=== PATIENT | male | born 1960 | race Caucasian/White ===

== ENCOUNTER 2017-10-18 12:25 | Inpatient (IN) | payer BC ==
[2017-10-18] MEDS ORDERED: CEFAZOLIN 1 GM INJ (13:11)
[2017-10-18] MEDS ORDERED: PROPOFOL 20 ML (13:11)
[2017-10-18] MEDS ORDERED: ROCURONIUM 50 MG INJ ×2 (13:11→16:31)
[2017-10-18] MEDS ORDERED: MIDAZOLAM 1 MG/ML 2 ML INJ (13:11)
[2017-10-18] MEDS ORDERED: GELATIN SIZE 100 SPONGE (13:16)
[2017-10-18] MEDS ORDERED: THROMBIN 5000 UNIT VIAL (13:16)
[2017-10-18] MEDS ORDERED: LABETALOL HCL 20MG INJ (15:29)
[2017-10-18] MEDS ORDERED: ACETAMINOPHEN 1000MG/100ML IV 100 ML (15:41)
[2017-10-18] MEDS ORDERED: METOCLOPRAMIDE 10 MG INJ (15:41)
[2017-10-18] MEDS ORDERED: DEXAMETHASONE 4 MG/ML 1 ML INJ (15:41)
[2017-10-18] MEDS ORDERED: ONDANSETRON 4 MG INJ (15:41)
[2017-10-18] MEDS ORDERED: PHENYLephrine 10 MG INJ (15:43)
[2017-10-18] MEDS ORDERED: PHENYLephrine (100 MCG/ML) 5ML SYG ×2 (15:44→16:26)
[2017-10-18] MEDS: POLYMYXIN/BACITRACIN 1L IRRIG (15:51)
[2017-10-18] MEDS: ROPIVACAINE 0.5 % 30 ML VIAL (15:55)
[2017-10-18] MEDS ORDERED: SUGAMMADEX SODIUM 200 MG/2 ML VIAL IV (16:39)
[2017-10-18] MEDS ORDERED: NALOXONE (0.4 MG/ML) INJ IV (17:00)
[2017-10-18] MEDS ORDERED: NACL 0.9% 3 ML SYG IV (17:00)
[2017-10-18] MEDS ORDERED: hydrALAzine 20 MG INJ IV ×2 (17:30→18:30)
[2017-10-18] MEDS ORDERED: LABETALOL HCL 20MG INJ IV (17:30)
[2017-10-18] MEDS ORDERED: ALBUMIN HUMAN 5% 250 ML IV (17:30)
[2017-10-18] MEDS ORDERED: DIPHENHYDRAMINE 50 MG INJ IV (17:30)
[2017-10-18] MEDS ORDERED: MEPERIDINE 25 MG INJ IV (17:30)
[2017-10-18] MEDS ORDERED: FENTAnyl 50 MCG/ML VIAL IV ×2 (17:30)
[2017-10-18] MEDS ORDERED: EPHEDrine SULFATE 50 MG/5 ML SYG IV (17:30)
[2017-10-18] MEDS ORDERED: OXYCODONE/ACETAMINOPHEN (5/325) TAB PO ×2 (17:30)
[2017-10-18] MEDS ORDERED: METOCLOPRAMIDE 10 MG INJ IV (17:30)
[2017-10-18] MEDS ORDERED: HYDROmorphONE (0.2 MG/ML) 10ML SYG IV ×3 (17:30)
[2017-10-18] MEDS: FENTAnyl 50 MCG/ML VIAL IV (17:40)
[2017-10-18] MEDS: ONDANSETRON 4 MG INJ IV (17:40)
[2017-10-18] MEDS: HYDROCODONE/APAP (5/325) TAB PO (20:18)
[2017-10-18] MEDS: HYDROmorphONE 2 MG/ML SYG IV (21:04)
[2017-10-18] MEDS: CEFAZOLIN 1 GM/50 ML (PMX) 50 ML IVPB (21:08)
[2017-10-18] MEDS: NS + KCL 20 MEQ 1,000 ML IV (21:11)
[2017-10-19] MEDS: CEFAZOLIN 1 GM/50 ML (PMX) 50 ML IVPB ×3 (00:13→12:24)
[2017-10-19] MEDS: HYDROmorphONE 2 MG/ML SYG IV ×4 (00:13→10:55)
[2017-10-19] MEDS: HYDROCODONE/APAP (5/325) TAB PO ×4 (00:18→19:41)
[2017-10-19] MEDS: NS + KCL 20 MEQ 1,000 ML IV ×2 (03:00→09:28)
[2017-10-19] MEDS: ACETAMINOPHEN 325 MG TAB PO (05:18)
[2017-10-19 06:57] LABS: HEMATOCRIT 39.4 % (42.0-52.0); HEMOGLOBIN 14.1 g/dl (14.0-18.0)
[2017-10-19 07:30] LABS: ANION GAP 13 (8-16); BLOOD UREA NITROGEN 15 mg/dl (7-20); CALCIUM 8.9 mg/dl (8.4-10.2); CARBON DIOXIDE 26 mmol/L (21-31); CHLORIDE 104 mmol/L (97-110); CREATININE 0.99 mg/dl (0.61-1.24); GLUCOSE 128 mg/dl (70-220); POTASSIUM 4.5 mmol/L (3.5-5.1); SODIUM 138 mmol/L (135-144)
[2017-10-19] MEDS: KETOROLAC 15 MG INJ IV ×2 (13:17→18:41)
[2017-10-19] MEDS: HYDROmorphONE 0.5 MG/0.5 ML SYG IV ×3 (14:51→22:55)
[2017-10-20] MEDS: HYDROCODONE/APAP (5/325) TAB PO ×3 (01:04→22:13)
[2017-10-20] MEDS: KETOROLAC 15 MG INJ IV ×2 (01:04→06:31)
[2017-10-20] MEDS: HYDROmorphONE 0.5 MG/0.5 ML SYG IV ×5 (02:07→23:14)
[2017-10-20 07:16] LABS: ADD MAN DIFF? NO
[2017-10-20 07:22] LABS: BASOPHILS % 0.3 % (0.0-2.0); EOSINOPHILS % 0.4 % (0.0-7.0); HEMATOCRIT 40.5 % (42.0-52.0); HEMOGLOBIN 14.1 g/dl (14.0-18.0); LYMPHOCYTES # 3.1 10^3/ul (0.8-2.9); LYMPHOCYTES % 29.5 % (15.0-51.0); MEAN CORPUSCULAR HEMOGLOBIN 31.3 pg (29.0-33.0); MEAN CORPUSCULAR HGB CONC 34.8 g/dl (32.0-37.0); MEAN PLATELET VOLUME 10.3 fl (7.4-10.4); MONOCYTES % 9.3 % (0.0-11.0); NEUTROPHIL # 6.3 10^3/ul (1.6-7.5); NEUTROPHILS % 60.3 % (39.0-77.0); PLATELET COUNT 187 10^3/UL (140-415); RED CELL DISTRIBUTION WIDTH 11.7 % (11.5-14.5)
[2017-10-20 07:22] LABS: WHITE BLOOD COUNT 10.4 10^3/ul (4.8-10.8)
[2017-10-20 07:47] LABS: ANION GAP 12 (8-16); BLOOD UREA NITROGEN 17 mg/dl (7-20); CALCIUM 8.9 mg/dl (8.4-10.2); CARBON DIOXIDE 28 mmol/L (21-31); CHLORIDE 105 mmol/L (97-110); CREATININE 0.99 mg/dl (0.61-1.24); GLUCOSE 95 mg/dl (70-220); POTASSIUM 3.9 mmol/L (3.5-5.1); SODIUM 141 mmol/L (135-144)
[2017-10-20] MEDS: ONDANSETRON 4 MG INJ IV (09:06)
[2017-10-20] MEDS: BISACODYL (EC) 5 MG TAB PO (15:51)
[2017-10-20] MEDS: DOCUSATE SODIUM 100 MG CAP PO (20:07)
[2017-10-21] MEDS: HYDROmorphONE 0.5 MG/0.5 ML SYG IV ×2 (05:43→13:01)
[2017-10-21 06:07] LABS: ADD MAN DIFF? NO
[2017-10-21 06:34] LABS: ANION GAP 13 (8-16); BLOOD UREA NITROGEN 14 mg/dl (7-20); CALCIUM 8.7 mg/dl (8.4-10.2); CARBON DIOXIDE 29 mmol/L (21-31); CHLORIDE 103 mmol/L (97-110); CREATININE 0.94 mg/dl (0.61-1.24); GLUCOSE 104 mg/dl (70-220); POTASSIUM 3.6 mmol/L (3.5-5.1); SODIUM 141 mmol/L (135-144)
[2017-10-21 06:39] LABS: BASOPHIL # 0.1 10^3/ul (0.0-0.1); BASOPHILS % 0.5 % (0.0-2.0); EOSINOPHILS # 0.1 10^3/ul (0.0-0.5); EOSINOPHILS % 1.4 % (0.0-7.0); HEMATOCRIT 41.1 % (42.0-52.0); HEMOGLOBIN 14.6 g/dl (14.0-18.0); LYMPHOCYTES # 2.5 10^3/ul (0.8-2.9); LYMPHOCYTES % 25.5 % (15.0-51.0); MEAN CORPUSCULAR HEMOGLOBIN 31.7 pg (29.0-33.0); MEAN CORPUSCULAR HGB CONC 35.5 g/dl (32.0-37.0); MEAN CORPUSCULAR VOLUME 89.3 fl (82.0-101.0); MEAN PLATELET VOLUME 10.5 fl (7.4-10.4); MONOCYTE # 1.2 10^3/ul (0.3-0.9); MONOCYTES % 12.4 % (0.0-11.0); NEUTROPHILS % 59.8 % (39.0-77.0); PLATELET COUNT 194 10^3/UL (140-415)
[2017-10-21] MEDS: DOCUSATE SODIUM 100 MG CAP PO ×2 (09:20→20:32)
[2017-10-21] MEDS: CARISOPRODOL 350 MG TAB PO (09:20)
[2017-10-21] MEDS: HYDROCODONE/APAP (5/325) TAB PO ×3 (09:20→20:32)
[2017-10-22] MEDS: HYDROCODONE/APAP (5/325) TAB PO ×3 (02:17→14:13)
[2017-10-22 06:08] LABS: ADD MAN DIFF? NO
[2017-10-22 06:12] LABS: BASOPHILS % 0.3 % (0.0-2.0); EOSINOPHILS # 0.2 10^3/ul (0.0-0.5); EOSINOPHILS % 1.8 % (0.0-7.0); HEMATOCRIT 40.3 % (42.0-52.0); HEMOGLOBIN 14.7 g/dl (14.0-18.0); LYMPHOCYTES % 33.2 % (15.0-51.0); MEAN CORPUSCULAR HEMOGLOBIN 32.2 pg (29.0-33.0); MEAN CORPUSCULAR HGB CONC 36.5 g/dl (32.0-37.0); MEAN CORPUSCULAR VOLUME 88.2 fl (82.0-101.0); MEAN PLATELET VOLUME 10.4 fl (7.4-10.4); MONOCYTE # 1.2 10^3/ul (0.3-0.9); NEUTROPHIL # 4.6 10^3/ul (1.6-7.5); NEUTROPHILS % 51.3 % (39.0-77.0); PLATELET COUNT 202 10^3/UL (140-415); RED BLOOD COUNT 4.57 10^6/ul (4.70-6.10); RED CELL DISTRIBUTION WIDTH 11.9 % (11.5-14.5)
[2017-10-22 06:12] LABS: WHITE BLOOD COUNT 9.1 10^3/ul (4.8-10.8)
[2017-10-22 06:46] LABS: ANION GAP 10 (8-16); BLOOD UREA NITROGEN 14 mg/dl (7-20); CALCIUM 9.2 mg/dl (8.4-10.2); CARBON DIOXIDE 29 mmol/L (21-31); CHLORIDE 104 mmol/L (97-110); CREATININE 0.98 mg/dl (0.61-1.24); GLUCOSE 107 mg/dl (70-220); POTASSIUM 3.7 mmol/L (3.5-5.1); SODIUM 139 mmol/L (135-144)
[2017-10-22] MEDS: DOCUSATE SODIUM 100 MG CAP PO (08:20)
[2017-10-22] MEDS: BISACODYL (EC) 5 MG TAB PO (13:04)
== END 2017-10-22 16:30 | disposition home or self-care (01) | DRG 460 ==
LOC: REC 12:25 → MS2 10-21 00:09 → TEL 19:04
PROC: 0SG30AJ Fusion of Lumbosacral Joint with Interbody Fusion Device, Posterior Approach, Anterior Column, Open Approach (ICD-10-PCS; principal; 2017-10-18 14:00)
PROC: 0SB40ZZ Excision of Lumbosacral Disc, Open Approach (ICD-10-PCS; 2017-10-18 14:00)
DX: M54.17 Radiculopathy, lumbosacral region (principal); I10 Essential (primary) hypertension; M54.5 Low back pain; R00.0 Tachycardia, unspecified; E78.5 Hyperlipidemia, unspecified; M79.7 Fibromyalgia
CPT/HCPCS: 72100; 72131; 80048; 85014; 85018; 85025; 86850; 86900; 86901; 86920; 87086; 88304; 97110; 97116; 97163; 97530